=== PATIENT | female | born 1960 | race Caucasian/White ===

== ENCOUNTER 2017-04-02 10:26 | Outpatient (CLI) | payer OTHER ==
[2017-04-02 11:36] LABS: #Basophils 0.1 thou/uL (0.0-0.2); #Eosinphils 0.3 thou/uL (0.0-0.7); #Lymphocytes 2.2 thou/uL (1.20-3.40); #Monocytes 0.5 thou/uL (0.11-0.59); #Neutrophils 6.5 thou/uL (1.40-6.50); %Basophils 0.5 % (0.0-1.0); %Eosinophils 3.1 % (0.0-10.0); %Lymphocytes 23.1 % (21.0-51.0); %Monocytes 5.5 % (0.0-10.0); Hematocrit 38.4 % (36.0-47.0); Red Blood Cell (RBC) Count 4.22 mill/uL (4.20-5.40); White Blood Cell (WBC) Count 9.6 thou/uL (4.8-10.8)
[2017-04-02 12:09] LABS: ALT (SGPT) 28 U/L (8-55); AST (SGOT) 34 U/L (5-34); Alkaline Phosphatase 57 U/L (40-150); Anion Gap 14 mmol/L (10-20); BUN (Urea Nitrogen) 15 mg/dL (9.8-20.1); Bilirubin, Total 0.6 mg/dL (0.2-1.2); Calc. Creatinine Clearance 0 mL/min (70-130); Calcium 9.9 mg/dL (7.8-10.44); Carbon Dioxide 26 mmol/L (22-29); Chloride 103 mmol/L (98-107); Estimated GFR-MDRD 44; Protein, Total 8.1 g/dL (6.0-8.3)
--- NOTE | 2017-04-02 15:05 | EKG ---
Test Reason : Blood Pressure : / mmHG Vent. Rate : 068 BPM Atrial Rate : 068 BPM P-R Int : 150 ms QRS Dur : 086 ms QT Int : 404 ms P-R-T Axes : -08 020 022 degrees QTc Int : 429 ms Normal sinus rhythm Normal ECG Confirmed by DONNIE LIANG ([id number]) on 04/02/2017 3:05:02 PM Referred By: Confirmed By:DONNIE LIANG
== END 2017-04-02 10:27 | disposition home or self-care (01) ==
LOC: LABBT 10:26
PROVIDERS: ATTEND Surgery
DX: Z01.812 Encounter for preprocedural laboratory examination (principal); K80.20 Calculus of gallbladder without cholecystitis without obstruction
CPT/HCPCS: 80053; 85025; 93005; 93010

== ENCOUNTER 2017-04-05 06:13 | Day surgery (SDC) | payer OTHER ==
[2017-04-02 10:41] VITALS: BMI 41.5
[2017-04-05] MEDS ORDERED: Midazolam HCl 2 mg/2 ml Vial ONE ×2 (06:26→07:27)
[2017-04-05] MEDS ORDERED: Fentanyl 100 MCG/2 ML VIAL ONE ×6 (06:26→10:23)
[2017-04-05] MEDS ORDERED: Scopolamine 1.5 mg/72 hour Patch ONE (06:53)
[2017-04-05] MEDS ORDERED: Levofloxacin 500 mg/D5W 100 ml Premix Bag ONE (07:28)
[2017-04-05] MEDS ORDERED: Lidocaine 2% w/Epinephrine 1:200K 20 ML VIAL ONE (07:47)
[2017-04-05] MEDS ORDERED: Bupivacaine 0.25% HCL 30 ML VIAL ONE (07:47)
[2017-04-05] MEDS ORDERED: Glycopyrrolate 0.2 MG/ML 5 ML SYRINGE ONE (08:09)
[2017-04-05] MEDS ORDERED: Ondansetron HCl/PF 4 MG/2 ML Vial ONE (08:09)
[2017-04-05] MEDS ORDERED: PHENYLEPHRINE-NS 100 MCG/ML 10 ML SYRINGE ONE (08:09)
[2017-04-05] MEDS ORDERED: Lidocaine 2% PF 10 ML AMP (For Epidural Use) ONE (08:09)
[2017-04-05] MEDS ORDERED: Propofol 200 MG/20 ML VIAL ONE (08:09)
[2017-04-05] MEDS ORDERED: Dexamethasone 20 MG/5 ML VIAL ONE (08:09)
[2017-04-05] MEDS ORDERED: Promethazine HCl 25 MG/ML VIAL ONE (09:33)
[2017-04-05] MEDS ORDERED: Non-Formulary Medication 1 EACH PO PRN (09:54)
[2017-04-05] MEDS ORDERED: Ondansetron HCl/PF 4 MG/2 ML Vial IVP PRN (09:54)
[2017-04-05] MEDS ORDERED: Promethazine HCl 25 MG/ML VIAL IM/IV PRN (09:54)
[2017-04-05] MEDS ORDERED: HYDROcodone/Acetaminophen 5/325 mg Tablet ONE (12:05)
[2017-04-05] MEDS ORDERED: traMADol HCl 50 MG TAB ONE (12:42)
--- NOTE | 2017-04-06 20:26 | PDOC.OP ---
Operative Note - Operative Note Operative Note: PROCEDURE: Laparoscopic cholecystectomy SURGEON: Erik Dempsey M.D. DATE OF PROCEDURE: 04/05/2017 PREOPERATIVE DIAGNOSIS: Cholelithiasis and cholecystitis POSTOPERATIVE DIAGNOSIS: Cholelithiasis and cholecystitis HISTORY: Patient with typical biliary colic symptoms without gallstones or abnormal ejection fraction on imaging. Her symptoms were however reproduced by fatty meal during her HIDA scan and it is felt that her ongoing chronic postprandial pain is biliary in origin. The patient has decided to proceed with laparoscopic cholecystectomy. FINDINGS: Chronically distended thin-walled gallbladder. Cirrhotic-appearing liver. PROCEDURE IN DETAIL: After informed consent was obtained and appropriate preoperative antibiotics were administered, the patient was taken to the operating room and placed in the supine position and general endotracheal anesthesia was administered. The stomach was decompressed with an OG tube and the abdomen was prepped and draped in standard sterile fashion. Local anesthesia was infused to the skin and subcutaneous tissues at the umbilical level. A transverse skin incision was made. The fascia was elevated and a Veress needle was placed into the abdominal cavity without difficulty. Opening pressure was less than 5 and carbon dioxide gas easily insufflated to an intra- abdominal pressure of 15, which the patient tolerated well. The Veress needle was withdrawn and a [place] port advanced under direct vision. The abdominal cavity was carefully examined. There was no evidence of Veress needle or of trocar injury. Local anesthesia was infused to the skin and subcutaneous tissues at the epigastric, right upper quadrant, and right lateral abdominal sites and trocars were placed under direct vision of the laparoscope. The liver was noted to be cirrhotic in appearance with a nodular surface and stiff consistency. The fundus of the gallbladder was grasped and retracted superiorly with some difficulty due to the enlarged stiff and liver. The infundibulum was grasped and retracted laterally. The lower portion of the gallbladder was encased in fat and visualization was difficult because of the nodular enlarged liver and the intrahepatic nature of the gallbladder. The serosa was stripped inferiorly at the level of the neck of the gallbladder exposing the wall of the gallbladder. This was carefully traced down to where it narrowed to the cystic duct. During the exposure of the gallbladder wall, several small vessels felt to be branches of the cystic artery were divided using electrocautery. The distal gallbladder was skeletonized and the entire wall exposed and traced down to the cystic duct. Critical view of safety was obtained and the cystic duct was clipped and divided between clips. The gallbladder was then dissected free of the gallbladder bed using hook electrocautery. Prior to complete removal of the gallbladder from the gallbladder bed, the area of the cystic duct and artery stumps was examined. The clips were in good position and there was no bleeding and no leakage of bile. The gallbladder was then placed into an EndoCatch bag and drawn out through the epigastric incision. The epigastric trocar was replaced and the operative site easily irrigated to clear. There was no significant bleeding or spillage of bile. Given the new diagnosis of cirrhosis which was unexpected the decision was made to perform a liver biopsy. A wedge biopsy of the edge of the right lobe of the liver was taken using laparoscopic scissors and sent to pathology. The biopsy site was cauterized. Hemostasis of the gallbladder bed was again confirmed as was hemostasis of the liver biopsy site. The epigastric trocar was removed and the fascia closed under direct laparoscopic vision with a 0 Vicryl suture on a GraNee needle in a [id number] manner with excellent technical result. The right upper quadrant and right lateral abdominal trocars were removed and hemostasis verified. Carbon dioxide gas was allowed to desufflate through the umbilical trocar which was then removed. The skin incisions were closed with 4-0 subcuticular Monocryl sutures and Dermabond dressings were placed. The patient was extubated and taken to the recovery room in good condition. There were no complications. ESTIMATED BLOOD LOSS: Minimal. SPECIMEN : Gallbladder and contents and liver biopsy.
[2017-04-08 14:17] LABS: Hep B Surface AG-Rflx Sendout Negative (Negative); Hepatitis B Core Total Negative (Negative); Hepatitis B Surface AB-Sendout Non Reactive (.); Hepatitis B little e Antibody Negative (Negative); Hepatitis B little e Antigen Negative (Negative)
== END 2017-04-05 13:35 | disposition home or self-care (01) ==
LOC: SDC 06:13
PROVIDERS: ATTEND Surgery
PROC: 0FT44ZZ Resection of Gallbladder, Percutaneous Endoscopic Approach (ICD-10-PCS; principal; 2017-04-05)
DX: K81.1 Chronic cholecystitis (principal); K75.81 Nonalcoholic steatohepatitis (NASH); K74.0 Hepatic fibrosis; R16.0 Hepatomegaly, not elsewhere classified; G47.33 Obstructive sleep apnea (adult) (pediatric); E11.9 Type 2 diabetes mellitus without complications; I10 Essential (primary) hypertension; E03.9 Hypothyroidism, unspecified; D64.9 Anemia, unspecified; G43.909 Migraine, unspecified, not intractable, without status migrainosus; E78.5 Hyperlipidemia, unspecified; Z99.89 Dependence on other enabling machines and devices; Z79.84 Long term (current) use of oral hypoglycemic drugs; Z79.899 Other long term (current) drug therapy; Z88.5 Allergy status to narcotic agent; Z88.0 Allergy status to penicillin; Z88.2 Allergy status to sulfonamides; Z98.84 Bariatric surgery status; Z95.818 Presence of other cardiac implants and grafts; Z90.89 Acquired absence of other organs; Z98.890 Other specified postprocedural states
CPT/HCPCS: 36415; 36416; 86704; 86705; 86706; 86707; 86803; 87340; 87350; 88304; 88307; 88313; 96374; J1100; J1956; J2001; J2250; J2270; J2405; J2550; J2704; J3010; S0020

== ENCOUNTER 2017-07-22 10:57 | Outpatient (CLI) | payer OTHER | END 2017-07-22 10:58 | disposition home or self-care (01) | LOC: BICRAD 10:57 | DX: R07.81 Pleurodynia (principal) ==